=== PATIENT | male | born 1970 | race Two or more races ===

== ENCOUNTER 2025-07-19 14:12 | Emergency (ER) | payer MEDICAID, OTHER ==
[~2025-07-19] VITALS: Ht 172.7 cm; Wt 84.3 kg
[2025-07-19 14:12] VITALS: TEMP 97.3
[2025-07-19 15:07] LABS: Hematocrit 46.0 % (41.0-53.0); Hemoglobin 16.0 g/dL (13.5-17.5); Mean Corpuscular Hemoglobin 33.3 pg (28.0-32.0); Mean Corpuscular Volume 95.4 fL (80.0-100.0); Nucleated Red Blood Cells % 0.1 %
--- NOTE | 2025-07-19 15:19 | ED.PDOC ---
History of Present Illness HPI Comments Mr. Rodriguez is a 55 year old male with prior medical history of an umbilical hernia status post repair, who presents today with chief complaint of abdominal pain. The patient states that for the last 5 days he has had presence of intermittent sharp mid lower quadrant pain, it radiates to right and left lower quadrant, intensity 8/10, with no aggravating or relieving factors. Additionally refers sharp, nonradiating, lower back pain for the last month. He denies nausea, vomiting, fever, diarrhea, changes in urine, hematuria, incontinence, chest pain, shortness of breath, and palpitations. Due to persistence of symptoms, the patient presented today for evaluation in the emergency department. On initial evaluation, the patient seems well, vitals were stable, he is able to ambulate without difficulty, without overt signs of distress. Chief Complaint: Abdominal Pain Time Seen by MD: 14:26 Allergies: Coded Allergies: NO KNOWN ALLERGIES (Unverified , 07/19/25) Information Source: Patient Mode of Arrival: Ambulatory Severity: None Timing: Days Duration: Intermittent Past Medical History Past Medical History (Other): Umbilical hernia Surgical History: Hernia Repair Family History Family History: Reviewed,noncontributory to illness Social History Smoker: Less Than 1 Pack/Day (Has smoked 5-7 cigarettes a day for the last 15 years) Alcohol: Occasionally (Refers occasional heavy drinking, states he drinks 7-8 beers in a sitting) Drugs: Denies Drug Use Lives In: Home Constitutional: denies: chills, diaphoresis, fatigue, fever, malaise, sweats, weakness EENTM: denies: blurred vision, double vision, mouth pain, nasal discharge, nose congestion, nose pain, throat pain Respiratory: denies: cough, hemoptysis, orthopnea, shortness of breath Cardiovascular: denies: chest pain, dizzy spells, diaphoresis, Dyspnea on exertion, edema, irregular heart beat, left arm pain, lightheadedness, palpitations, syncope Gastrointestinal: reports: abdominal pain; denies: abdomen distended, blood streaked bowels, constipated, diarrhea, dysphagia, difficulty swallowing, hematemesis, melena, nausea, poor appetite, poor fluid intake, rectal bleeding, vomiting Genitourinary: denies: burning, dysuria, flank pain, frequency, hematuria, incontinence, pain, urgency Neurological: denies: dizziness, fainting, headache, numbness, paresthesia, pre-existing deficit, seizure, speech problems, tingling, weakness Musculoskeletal: denies: joint pain, joint swelling, muscle pain, muscle stiffness, neck pain Integumetry: denies: bruises, laceration, lesions, lumps, rash, wounds Physical Exam General Appearance: Normal HEENT: Normal ENT Inspection, PERRL/EOMI, Pharynx Normal Neck: Full Range of Motion, Non-Tender, Normal Inspection Respiratory: Chest Non-Tender, Lungs Clear, No Accessory Muscle Use, No Respiratory Distress, Normal Breath Sounds Cardiovascular: No Edema, No Murmur, Normal Peripheral Pulses, Regular Rate/R hythm Breast Exam: Deferred Gastrointestinal: Non Tender, Normal Bowel Sounds, Soft Genitalia: Deferred Pelvic: Deferred Rectal: Deferred Extremities: Normal capillary refill, Normal inspection, Normal range of motion, Non-tender, No pedal edema Neurologic: Alert, Normal Affect, Normal Mood Cerebellar Function: NOT DONE Reflexes: NOT DONE Skin: Normal Color Peripheral Pulses: 3+ dorsalis pedis (R), 3+ dorsalis pedis (L) Lymphatic: Other (No cervical adenopathy) Was a procedure done? Was a procedure done?: No Differential Dx Considerations may include: DKA, HHS, simple hyperglycemia, acute gastroenteritis, acute enterocolitis, acute cholecystitis, acute appendicitis, food poisoning X-Ray, Labs, Meds, VS Vital Signs Date Time Temp Pulse Resp B/P (MAP) Pulse Ox O2 Delivery O2 Flow Rate FiO2 07/19/25 16:57 75 18 115/74 (88) 97 07/19/25 14:12 97.3 84 15 132/78 96 97.3 Lab Test 07/19/25 15:40 07/19/25 14:52 Range/Units Urine Color Light-yellow Yellow Urine Clarity Clear Clear Urine pH 7.0 5.0-9.0 Urine Specific Mammoth 1.027 1.001-1.035 Urine Protein Negative Negative Urine Ketones Negative Negative Urine Blood Negative Negative /uL Urine Nitrite Negative Negative Urine Bilirubin Negative Negative Urine Urobilinogen Normal Negative mg/dL Urine Leukocyte Esterase Negative Negative /uL Urine RBC <1 0 - 3 /hpf Urine Microscopic WBC < 1 0-3 /HPF Urine Squamous Epithelial Cells None seen <5 /hpf Urine Bacteria None seen None Seen /hpf Urine Glucose 4+ H Normal mg/dL White Blood Count 4.9 4.4-10.8 10^3/uL Red Blood Count 4.82 4.5-5.90 10^6/uL Hemoglobin 16.0 13.5-17.5 g/dL Hematocrit 46.0 41.0-53.0 % Mean Corpuscular Volume 95.4 80.0-100.0 fL Mean Corpuscular Hemoglobin 33.3 H 28.0-32.0 pg Mean Corpuscular Hemoglobin Concent 34.8 32.0-36.0 g/dL Red Cell Distribution Width 13.6 11.8-14.3 % Platelet Count 221 140-450 10^3/uL Mean Platelet Volume 9.0 6.9-10.8 fL Neutrophils (%) (Auto) 47.0 37.0-80.0 % Lymphocytes (%) (Auto) 38.9 10.0-50.0 % Monocytes (%) (Auto) 11.5 0.0-12.0 % Eosinophils (%) (Auto) 1.8 0.0-7.0 % Basophils (%) (Auto) 0.8 0.0-2.0 % Neutrophils # (Auto) 2.3 1.6-8.6 10 ^3/uL Lymphocytes # (Auto) 1.9 0.4-5.4 10 ^3/uL Monocytes # (Auto) 0.6 0-1.3 10 ^3/uL Eosinophils # (Auto) 0.1 0-0.8 10 ^3/uL Basophils # (Auto) 0 0-0.2 10 ^3/uL Nucleated Red Blood Cells 0.1 % Sodium Level 139 136-145 mmol/L Potassium Level 4.6 3.5-5.1 mmol/L Chloride Level 104 98-107 mmol/L Carbon Dioxide Level 26 20-31 mmol/L Anion Gap 9 5-15 Blood Urea Nitrogen 18 9-23 mg/dL Creatinine 1.23 0.700-1.30 mg/dL Glomerular Filtration Rate Calc 70 >90 mL/min BUN/Creatinine Ratio 14.6 10.0-20.0 Serum Glucose 410 *H 74-106 mg/dL Calcium Level 9.7 8.7-10.4 mg/dL Total Bilirubin 0.2 0.2-1.0 mg/dL Aspartate Amino Transferase (AST) 19 13-40 U/L Alanine Aminotransferase (ALT) 38 7-40 U/L Alkaline Phosphatase 140 H 46-116 U/L Total Protein 6.9 5.7-8.2 g/dL Albumin 4.4 3.2-4.8 g/dL Lipase 39 12-53 U/L Current Medications Medications (Trade) Dose Ordered Sig/Trell Route Start Time Stop Time Status Last Admin Ketorolac Tromethamine (Toradol Injection) 15 mg ONCE ONCE IM 07/19/25 15:45 07/19/25 15:46 DC 07/19/25 15:45 Sodium Chloride 1,000 ml @ 1,000 mls/hr Q1H ONCE IV 07/19/25 15:45 07/19/25 16:44 DC 07/19/25 16:30 Insulin Human Regular (InsuLIN R) 10 units ONCE ONCE IV 07/19/25 15:45 07/19/25 15:46 DC 07/19/25 15:45 Time of 1ST Reevaluation: 15:30 Reevaluation 1ST: Unchanged Patient Education/Counseling: Diagnosis, Treatment Family Education/Counseling: No Family Present Comments Patient presented today due to chief complaint of abdominal pain On initial evaluation the patient seems well, vitals were stable, is able to ambulate without difficulty, without overt signs of distress Physical examination without positive findings CBC is within normal range, CMP is significant for blood glucose of 410, alkaline phosphatase is 140, UA significant for 4+ glucose The patient has been started on Toradol 15 mg IM, NS 1000 cc bolus, and 10 units of insulin Due to pronounced hyperglycemia and abdominal pain, for further insulin treatment SEPSIS Sepsis Screen Date sepsis recognized/suspect: Jul 19, 2025 Time Sepsis recognized/suspect: 1414 Recent Procedure: No On Antibiotic Therapy: No Respiratory Rate >20: No Heart Rate >90: No Temp<36 C (96.8 F) or >38.3 C: No SBP <90 or MAP <65 mmHG: No New Acute Mental Status Change: No Is the patient on CPAP, BIPAP,: No Vital Signs Date Time Temp Pulse Resp B/P (MAP) Pulse Ox O2 Delivery O2 Flow Rate FiO2 07/19/25 16:57 75 18 115/74 (88) 97 07/19/25 14:12 97.3 84 15 132/78 96 97.3 Laboratory Tests Test 07/19/25 14:52 White Blood Count 4.9 10^3/uL (4.4-10.8) Medications Medications Dose Ordered Sig/Trell Route Start Time Stop Time Status Last Admin Dose Admin Insulin Human Regular 10 units ONCE ONCE IV 07/19/25 15:45 07/19/25 15:46 DC 07/19/25 15:45 Ketorolac Tromethamine 15 mg ONCE ONCE IM 07/19/25 15:45 07/19/25 15:46 DC 07/19/25 15:45 Sodium Chloride 1,000 ml @ 1,000 mls/hr Q1H ONCE IV 07/19/25 15:45 07/19/25 16:44 DC 07/19/25 16:30 Departure 1 Departure Time of Disposition: 15:50 Impression: Primary Impression: Intractable abdominal pain Additional Impression: Hyperglycemia due to diabetes mellitus Disposition: 30 STILL A PATIENT Admit to: Med Surg Condition: Stable Critical Care Note Critical Care Time?: No Stability Stability form required: ALIYAH Yepez RESIDENT Jul 19, 2025 15:19
[2025-07-19 15:22] LABS: Alanine Aminotransferase 38 U/L (7-40); Albumin 4.4 g/dL (3.2-4.8); Anion Gap 9 (5-15); BUN/Creatinine Ratio 14.6 (10.0-20.0); Blood Urea Nitrogen 18 mg/dL (9-23); Calcium 9.7 mg/dL (8.7-10.4); Carbon Dioxide 26 mmol/L (20-31); Chloride 104 mmol/L (98-107); Lipase 39 U/L (12-53); Potassium 4.6 mmol/L (3.5-5.1); Sodium 139 mmol/L (136-145); Total Protein 6.9 g/dL (5.7-8.2)
[2025-07-19 15:25] LABS: Alkaline Phosphatase 140 U/L (46-116); Bilirubin, Total 0.2 mg/dL (0.2-1.0)
[2025-07-19] MEDS: KETOROLAC TROMETH 60MG/2ML VIAL IM ONE (15:45)
[2025-07-19] MEDS: InsuLIN REG 1unit/0.01ml Soln (100units/ml) IV ONE (15:45)
[2025-07-19 15:47] LABS: Urine Protein, UAD Negative (Negative)
[2025-07-19] MEDS: SODIUM CHLORIDE 0.9% 1,000 ML IV ONE (16:30)
[2025-07-19 16:57] VITALS: BP 115/74; PULSE 75; RESP 18; O2SAT 97
[2025-07-20 07:13] LABS: Glucose 410 mg/dL (74-106)
== END 2025-07-19 22:12 | disposition left against medical advice (07) ==
LOC: ER 14:12
DX: R10.32 Left lower quadrant pain (principal); E11.65 Type 2 diabetes mellitus with hyperglycemia; M54.50 Low back pain, unspecified; F17.210 Nicotine dependence, cigarettes, uncomplicated; Z98.890 Other specified postprocedural states
CPT/HCPCS: 36415; 80053; 81001; 83690; 85025; 96361; 96372; 96374; 99284; J1815; J1885; J7030